=== PATIENT | male | born 1945 | race Two or more races ===

== ENCOUNTER → 2017-09-26 | Outpatient (CLI) | payer MEDICAID | END | disposition home or self-care (01) | LOC: Rad HDHVI 12:49 | PROVIDERS: ATTEND Internal Medicine | DX: R09.89 Other specified symptoms and signs involving the circulatory and respiratory systems (principal) | CPT/HCPCS: 93880 ==

== ENCOUNTER → 2017-10-04 | Outpatient (CLI) | payer MEDICAID | END | disposition home or self-care (01) | LOC: Rad HDHVI 14:54 | PROVIDERS: ATTEND Internal Medicine Cardiovascular Disease | DX: I07.1 Rheumatic tricuspid insufficiency (principal); I65.29 Occlusion and stenosis of unspecified carotid artery; I25.5 Ischemic cardiomyopathy | CPT/HCPCS: 93306 ==

== ENCOUNTER → 2018-03-01 | Outpatient (CLI) | payer OTHER, MEDICAID ==
[~2018-03-01] MED LIST: BENA10TA9 PO; BENA20TA14 PO; CILO100T PO; CLOP75TA28 PO; GABA-339 PO; PANT40TA2 PO; VARE1TAB PO
[2018-03-01 09:25] VITALS: BP 127/70
[2018-03-01 09:53] VITALS: BP 125/75
[2018-03-01 12:00] LABS: Basophils # (auto) 0 uL; Basophils % (auto) 0.3 % (0.0-2.0); Eosinophils # (auto) 0.1 uL; Hemoglobin 9.5 g/dL (13.5-17.5); Lymphocytes # (auto) 1.8 uL; Monocytes # (auto) 0.9 uL; White Blood Cell 10.1 10^3/uL (4.4-10.8)
[2018-03-01 12:03] LABS: Hematocrit 30.9 % (41.0-53.0); Lymphocytes % (auto) 17.5 % (10.0-50.0); Mean Corpuscular Hemoglobin 20.4 pg (28.0-32.0); Mean Corpuscular Hgb Conc. 30.7 g/dL (32.0-36.0); Mean Corpuscular Volume 66.4 fL (80.0-100.0); Monocytes % (auto) 8.9 % (0.0-12.0); Neutrophils # (auto) 7.3 uL; Neutrophils % (auto) 72.3 % (37.0-80.0); Nucleated Red Blood Cells % 0.1 %; Platelet Count (auto) 408 10^3/uL (140-450); Red Blood Cells 4.66 10^6/uL (4.5-5.90)
[2018-03-01 12:21] LABS: INR 1.02 (0.9-1.15); Partial Thromboplastin Time 26.1 sec (23.78-33.04); Prothrombin Time 10.9 sec (9.27-12.13)
[2018-03-01 12:29] LABS: Red Cell Distribution Width 22.2 % (11.8-14.3)
[2018-03-01 13:16] LABS: BUN/Creatinine Ratio 12.1; Calcium 8.2 mg/dL (8.5-10.1); Potassium 3.8 mmol/L (3.5-5.1)
== END | disposition home or self-care (01) ==
LOC: Rad HDHVI 09:02
PROVIDERS: ATTEND Internal Medicine Cardiovascular Disease
DX: Z01.818 Encounter for other preprocedural examination (principal); I70.0 Atherosclerosis of aorta; I73.9 Peripheral vascular disease, unspecified; D64.9 Anemia, unspecified; R79.1 Abnormal coagulation profile; I10 Essential (primary) hypertension; G58.9 Mononeuropathy, unspecified; R94.31 Abnormal electrocardiogram [ECG] [EKG]
CPT/HCPCS: 36415; 71046; 80048; 85025; 85610; 85730; 93005; G0463

== ENCOUNTER → 2018-05-27 | Outpatient (CLI) | payer OTHER, MEDICAID ==
[~2018-05-27] MED LIST changes: -BENA20TA14 PO; +CHOL20007 PO; +FERR-20 PO; +GABA300C10 PO; -PANT40TA2 PO; -VARE1TAB PO
[2018-05-27 10:10] VITALS: BP 123/67
--- NOTE | 2018-05-27 10:10 | NUR ---
[facility] PT TO [facility] FOR PREOP LABS, EKG AND CHEST XRAY TO READY FOR PREOP OF LLE ANGIO 05/29/[address] MORRIS.
[2018-05-27 10:25] VITALS: BP 109/70
--- NOTE | 2018-05-27 10:25 | NUR ---
[facility] Pre-Op Discharge Summary: See e-MAR for any medications given for this visit. Pre-op orders received and carried out per MD of EKG, LABS and chest xrays. Patient given a copy of EKG with instructions to go to [facility] out patient for further follow up care.
[2018-05-27 12:09] LABS: BUN/Creatinine Ratio 17.5; Calcium 8.2 mg/dL (8.5-10.1); Potassium 3.9 mmol/L (3.5-5.1)
[2018-05-27 12:16] LABS: INR 0.97 (0.9-1.15); Partial Thromboplastin Time 26.3 sec (23.78-33.04); Prothrombin Time 10.4 sec (9.27-12.13)
[2018-05-27 12:36] LABS: Eosinophils # (auto) 0.1 uL; Hemoglobin 9.2 g/dL (13.5-17.5); White Blood Cell 12.1 10^3/uL (4.4-10.8)
[2018-05-27 12:38] LABS: Basophils # (auto) 0.1 uL; Basophils % (auto) 0.5 % (0.0-2.0); Eosinophils % (auto) 1.1 % (0.0-7.0); Hematocrit 30.4 % (41.0-53.0); Lymphocytes % (auto) 16.3 % (10.0-50.0); Mean Corpuscular Hemoglobin 20.3 pg (28.0-32.0); Mean Corpuscular Hgb Conc. 30.2 g/dL (32.0-36.0); Monocytes # (auto) 1.2 uL; Monocytes % (auto) 9.9 % (0.0-12.0); Neutrophils # (auto) 8.8 uL; Neutrophils % (auto) 72.2 % (37.0-80.0); Platelet Count (auto) 426 10^3/uL (140-450); Red Blood Cells 4.53 10^6/uL (4.5-5.90)
[2018-05-27 12:43] LABS: Red Cell Distribution Width 22.1 % (11.8-14.3)
== END | disposition home or self-care (01) ==
LOC: Rad HDHVI 09:54
PROVIDERS: ATTEND Internal Medicine Cardiovascular Disease
DX: Z01.812 Encounter for preprocedural laboratory examination (principal); M40.294 Other kyphosis, thoracic region; M85.80 Other specified disorders of bone density and structure, unspecified site; I70.0 Atherosclerosis of aorta; J43.9 Emphysema, unspecified; I10 Essential (primary) hypertension; D64.9 Anemia, unspecified; J98.4 Other disorders of lung; R79.1 Abnormal coagulation profile
CPT/HCPCS: 36415; 71046; 80048; 85025; 85610; 85730; 93005; G0463

== ENCOUNTER 2018-05-29 08:31 | Inpatient (IN) | payer OTHER, MEDICAID | END 2018-05-31 15:55 | disposition home or self-care (01) | LOC: CATH 08:31 → EAST 16:00 → TELE-EAST 17:55 | PROC: B41D1ZZ Fluoroscopy of Aorta and Bilateral Lower Extremity Arteries using Low Osmolar Contrast (ICD-10-PCS; principal; ~2018-05-29) | DX: I70.201 Unspecified atherosclerosis of native arteries of extremities, right leg (principal); I10 Essential (primary) hypertension ==

== ENCOUNTER → 2020-11-08 | Outpatient (CLI) | payer OTHER, MEDICAID ==
[~2020-11-08] MED LIST changes: -CILO100T PO; -GABA-339 PO
== END | disposition home or self-care (01) ==
LOC: Rad HDHVI 14:23
PROVIDERS: ATTEND Internal Medicine
DX: E78.5 Hyperlipidemia, unspecified (principal)
CPT/HCPCS: 93970

== ENCOUNTER 2020-12-05 12:20 | Emergency (ER) | payer OTHER, MEDICAID ==
[~2020-12-05] VITALS: Ht 167.6 cm; Wt 49.9 kg
[2020-12-05 15:08] LABS: Urine WBC None Seen /hpf (0 - 3)
[2020-12-05 15:29] LABS: Urine Bacteria NONE SEEN /hpf (None Seen); Urine Blood Negative /uL (Negative); Urine Specific Gravity 1.012 (1.001-1.035)
[2020-12-05 17:01] VITALS: BP 128/74
== END 2020-12-05 18:58 | disposition home or self-care (01) ==
LOC: EDBD 12:20 → ER 12:20
DX: N13.9 Obstructive and reflux uropathy, unspecified (principal); N41.0 Acute prostatitis; I10 Essential (primary) hypertension; E78.5 Hyperlipidemia, unspecified; Z86.2 Personal history of diseases of the blood and blood-forming organs and certain disorders involving the immune mechanism; Z79.01 Long term (current) use of anticoagulants; Z79.899 Other long term (current) drug therapy
CPT/HCPCS: 51702; 81001